=== PATIENT | male | born 1990 | race Caucasian/White ===

== ENCOUNTER → 2019-11-09 12:02 | Outpatient (CLI) | payer OTHER, SELFPAY ==
--- NOTE | 2019-11-09 | DI.RAD.S_ITS ---
PROCEDURE: XR RIBS RT 2V INDICATIONS: PAIN RIGHT SHOULDER CLAVICLE AND RIB POST FALL TECHNIQUE: 2 views of the right ribs were acquired. COMPARISON: None. FINDINGS: Surgical changes and devices: None. Bones and chest wall: No displaced right rib fractures or dislocations. No suspicious bony lesions. Overlying soft tissues appear unremarkable. Lungs and pleura: The visualized lung appears clear. No pleural effusions or pneumothorax are visible. IMPRESSION: No displaced right rib fractures. Dictated by: Harry Youssef M.D. on 11/09/2019 at 11:57 Approved by: Harry Youssef M.D. on 11/09/2019 at 11:58
--- NOTE | 2019-11-09 | DI.RAD.S_ITS ---
PROCEDURE: XR SHOULDER RT MIN 2V INDICATIONS: PAIN RIGHT SHOULDER CLAVICLE AND RIB POST FALL TECHNIQUE: 3 views of the shoulder were acquired. COMPARISON: None. FINDINGS: Bones: No fractures or dislocations. No suspicious bony lesions. Visualized ribs appear intact. Soft tissues: No suspicious soft tissue calcifications. IMPRESSION: No acute fractures of the right shoulder. Dictated by: Harry Youssef M.D. on 11/09/2019 at 11:56 Approved by: Harry Youssef M.D. on 11/09/2019 at 11:56
--- NOTE | 2019-11-09 | DI.RAD.S_ITS ---
PROCEDURE: XR CLAVICLE RT INDICATIONS: PAIN RIGHT SHOULDER CLAVICLE AND RIB POST FALL TECHNIQUE: 2 views of the clavicle were acquired. COMPARISON: None. FINDINGS: Bones: No displaced fractures or dislocations of the clavicle are evident. No suspicious osseous lesions. Soft tissues: No suspicious soft tissue calcifications. IMPRESSION: No acute right clavicle fractures. Dictated by: Harry Youssef M.D. on 11/09/2019 at 11:54 Approved by: Harry Youssef M.D. on 11/09/2019 at 11:56
== END ==
PROVIDERS: Referring Provider Family Medicine; Visit Provider Family Medicine
DX: M25.511 Pain in right shoulder (principal); M89.8X1 Other specified disorders of bone, shoulder; R07.81 Pleurodynia
CPT/HCPCS: 71100; 73000; 73030

== ENCOUNTER → 2019-11-30 09:38 | Outpatient (CLI) | payer OTHER, SELFPAY ==
--- NOTE | 2019-11-30 | DI.RAD.S_ITS ---
PROCEDURE: XR RIBS RT 2V INDICATIONS: RT CHEST PAIN S/P FALL TECHNIQUE: 2 views of the right ribs were acquired. COMPARISON: [facility], CR, XR CHEST 2V, 11/30/2019, 9:38. [facility], CR, XR CLAVICLE RT, 11/09/2019, 12:13. [facility], CR, XR RIBS RT 2V, 11/09/2019, 12:13. FINDINGS: Diagnostic, with note made of motion artifact. Surgical changes and devices: None. Bones and chest wall: A marker is placed upon the area of clinical concern. Within this region, no displaced rib fracture or other significant rib abnormality can be seen. No rib fractures are seen elsewhere. No suspicious bony lesions. Overlying soft tissues appear unremarkable. Lungs and pleura: The visualized lung appears clear. No pleural effusions or pneumothorax are visible. IMPRESSION: No displaced fractures can be seen. Dictated by: Ravi Flores M.D. on 11/30/2019 at 10:01 Approved by: Ravi Flores M.D. on 11/30/2019 at 10:02
--- NOTE | 2019-11-30 | DI.RAD.S_ITS ---
PROCEDURE: XR CHEST 2V INDICATIONS: RT CHEST PAIN S/P FALL TECHNIQUE: 2 views of the chest were acquired. COMPARISON: [facility], CR, XR RIBS RT 2V, 11/09/2019, 12:13. [facility], CR, XR RIBS RT 2V, 11/30/2019, 9:38. FINDINGS: Surgical changes and devices: None. Lungs and pleura: Lungs are clear. No pleural effusions or pneumothorax. Mediastinum: Mediastinal contours are normal. Heart size is normal. Bones and chest wall: No suspicious bony abnormalities. Soft tissues appear unremarkable. IMPRESSION: No pneumothorax is seen. No displaced rib fractures are seen. Dictated by: Ravi Flores M.D. on 11/30/2019 at 10:00 Approved by: Ravi Flores M.D. on 11/30/2019 at 10:01
== END ==
PROVIDERS: Referring Provider Family Medicine; Visit Provider Family Medicine
DX: R07.89 Other chest pain (principal)
CPT/HCPCS: 71046; 71100

== ENCOUNTER 2022-02-07 07:53 | Emergency (ER) | payer OTHER, SELFPAY ==
[2022-02-07 08:06] VITALS: BP 133/84; PULSE 92; RESP 18; TEMP 36.3; O2SAT 100; BMI 23.5
--- NOTE | 2022-02-07 08:25 | ED_ITS ---
HPI - Headache General Chief Complaint: Eye Problems Stated Complaint: Migraine with eye pain/ right side face swollen Time Seen by Provider: 02/07/22 08:07 Mode of arrival: Ambulatory History of Present Illness HPI Narrative: Patient is a 31-year-old male with no past medical history presenting with a right-sided headache and pressure behind his right eye for last couple days worse today. He says that his scalp his really tender and his hair hurts. Today he woke up and has a small red bump over his right eye. He denies any actual eye pain. He is sensitive to light more so over the last couple of days. No nausea or vomiting. No numbness tingling or weakness. No fever or chills no neck pain. No visual changes. He says he has had his eye scratch before does not feel like that his eye is not crusted is. Only 1 small bump on the right side. The rest of his headache is on the right side of his head as well. He does not typically get headaches. Related Data Home Medications Medication Instructions Recorded Confirmed bupropion HBr PO 06/22/21 09/20/21 hydroxyzine HCl PO 06/22/21 09/20/21 omeprazole 40 mg capsule,delayed 40 mg PO DAILY 06/22/21 09/20/21 release Previous Rx's Medication Instructions Recorded hydrocodone 5 mg-acetaminophen 325 1 tab PO Q6H PRN pain #10 tabs 02/07/22 mg tablet prednisone 20 mg tablet 40 mg PO DAILY #10 tabs 02/07/22 valacyclovir 1 gram tablet 1,000 mg PO TID #21 tabs 02/07/22 Allergies Allergy/AdvReac Type Severity Reaction Status Date / Time No Known Drug Allergies Allergy Verified 09/20/21 08:15 Review of Systems Review of Systems Narrative: GENERAL: Denies chills, fatigue, malaise, fever, sweats, travel HEENT: See HPI RESPIRATORY: Denies dyspnea, cough, wheezing, hemoptysis, sputum. CARDIOVASCULAR: Denies chest pain, palpitations, orthopnea, edema GASTROINTESTINAL: Denies nausea, vomiting, abdominal pain, diarrhea, constipation, melena. : Denies dysuria, frequency, incontinence, hematuria, urinary retention, flank pain. MUSCULOSKELETAL: Denies weakness, joint pain, or bony pain SKIN: No rash, no erythema, no pruritus NEUROLOGIC: See HPI PSYCHIATRIC: No concerning psychosocial issues. 12 point review of systems is negative except for those stated above and HPI Patient History Medical History Anxiety Depression Frequency of micturition History of insomnia Nocturia Overactive bladder Reflux gastritis Snoring Social History Smoking Status: Current every day smoker Smoking Status: Current every day smoker alcohol intake frequency: a few times a week Substance Use Type: does not use Exam Initial Vital Signs Initial Vital Signs: Vital Signs Temperature 97.4 F L 02/07/22 08:06 Pulse Rate 92 H 02/07/22 08:06 Respiratory Rate 18 02/07/22 08:06 Blood Pressure 133/84 02/07/22 08:06 Pulse Oximetry 100 02/07/22 08:06 Oxygen Delivery Method 02/07/22 08:06 GENERAL: Well-appearing, well-nourished and in no acute distress. HEENT: Head atraumatic,EOMI, pupils reactive, face symmetric, moist mucous membranes Eyes no erythema no periorbital swelling Right eye was treated with proparacaine, stained with fluorescein. No dye uptake. No foreign body. Neck is supple without meningeal signs CARDIOVASCULAR: Regular rate and rhythm without murmurs, rubs or gallops. RESPIRATORY: Breath sounds equal bilaterally, no wheezes rales or rhonchi. ABDOMEN: Soft, nontender. Normoactive bowel sounds all 4 quadrants. No guarding or rebound. EXTREMITIES: Normal range of motion, no clubbing or edema. Neurovascularly intact NEUROLOGICAL: Alert and oriented x4.Normal gait and speech. Cranial nerves II through XII grossly intact. Steam Blocker strength equal bilaterally, good lower extremity strength SKIN: Warm, dry, no laceration, no petechiae, no rashes or lesions. He does gonzales ve some a few erythematous spots superior the right periorbital area no actual vesicles, they do not cross midline Course Orders Ordered: Discontinued Medications Fluorescein Sodium (Fluorescein 1 Mg Strip) 1 mg EYE-BOTH NOW ONE Stop: 02/07/22 09:38 Last Admin: 02/07/22 09:47 Dose: 1 mg Documented By: JUANITA Sodium Chloride (Normal Saline 0.9%) 1,000 mls @ 1,000 mls/hr IV BOLUS ONE Stop: 02/07/22 09:27 Last Infusion: 02/07/22 09:55 Dose: 0 mls/hr Documented By: Admin: 02/07/22 08:43 Dose: 1,000 mls/hr Documented By: JUANITA(2) Ketorolac Tromethamine (Ketorolac 30 Mg/Ml Vial) 30 mg IV NOW ONE Stop: 02/07/22 08:29 Last Admin: 02/07/22 08:43 Dose: 30 mg Documented By: JUANITA(2) Morphine Sulfate (Morphine 4 Mg/Ml Inj) 4 mg IV NOW ONE Stop: 02/07/22 09:38 Last Admin: 02/07/22 09:48 Dose: 4 mg Documented By: JUANITA Ondansetron HCl (Ondansetron 4 Mg/2 Ml Inj) 4 mg IV NOW ONE Stop: 02/07/22 09:38 Last Admin: 02/07/22 09:48 Dose: 4 mg Documented By: JUANITA Proparacaine HCl (Proparacaine 0.5% Ophth Radha) 1 drops EYE-RIGHT NOW ONE Stop: 02/07/22 09:38 Last Admin: 02/07/22 09:47 Dose: 1 drop Documented By: JUANITA Vital Signs Vital signs: Vital Signs - 8 hr 02/07/22 08:06 Temperature 97.4 F L Pulse Rate 92 H Respiratory Rate 18 Blood Pressure 133/84 Pulse Oximetry 100 Oxygen Delivery Method Room Air MDM - Headache Lab Data Result diagrams: 02/07/22 08:06 02/07/22 08:06 Labs: Lab Results 02/07/22 02/07/22 Range/Units 08:06 08:06 WBC 6.6 (4.5-11.0) X10^3/uL RBC 5.17 (4.5-5.9) X10^6/uL Hgb 15.8 (13.5-17.5) g/dL Hct 44.7 (41-53) % MCV 86.4 (80-100) fL MCH 30.5 (26-34) PG MCHC 35.3 (30-36) % RDW 12.9 (11.6-14.8) % Plt Count 195 (150-400) X10^3/uL Neut % (Auto) 70.8 (50-75) % Lymph % (Auto) 17.4 L (25-40) % [place] % (Auto) 8.7 (3-14) % Eos % (Auto) 2.3 (2-4) % Baso % (Auto) 0.8 (0-2) % Neut # (Auto) 4700 (1039-9703) /uL Lymph # (Auto) 1200 (6678-3645) /uL [place] # (Auto) 600 (0-900) /uL Eos # (Auto) 200 (0-450) /uL Baso # (Auto) 100 (0-100) /uL Sodium 138 (137-145) mmol/L Potassium 4.1 (3.4-5.1) mmol/L Chloride 103 (98-107) mmol/L Carbon Dioxide 29 (22-32) mmol/L BUN 15 (9-20) mg/dL Creatinine 0.85 (0.66-1.25) mg/dL Estimated GFR > 60 (>60) mL/min BUN/Creatinine Ratio 17.6 (6-22) Glucose 151 H (70-100) mg/dL Calcium 9.1 (8.4-10.2) mg/dL Total Bilirubin 1.3 (0.2-1.3) mg/dL AST 51 (17-59) IU/L ALT 39 (<50) IU/L Alkaline Phosphatase 58 (38-126) U/L Total Protein 7.7 (6.3-8.2) g/dL Albumin 4.6 (3.5-5.0) g/dL Globulin 3.1 (1.7-4.1) g/dL Albumin/Globulin Ratio 1.5 (1.0-2.8) MDM Narrative Medical decision making narrative: The patient has a rash eye pain and headache with extremely sensitive scalp. I have very high suspicion for shingles. Will go ahead and start him on antiviral medications and prednisone. No ophthalmology involvement at this time. Discharge Plan Departure Patient Disposition: Home Clinical Impression: Shingles of eyelid Instructions: Shingles Activity Restrictions/Additional Instructions: *You have been diagnosed with shingles *What to do: At this time I have a very high suspicion that you have shingles. Her rash will likely get worse before it gets better. It can be very painful is for few weeks. *Continue to take medications as directed Valacyclovir 1000 mg 3 times a day for 7 days Prednisone 40 mg once a day for 5 days [place] 1 tablet every 6 hours if needed for severe pain *Follow up with your primary care provider in 2-3 days or call [phone] *Return to ER if you should have please monitor for any eye involvement extreme pain in I and able to open worsening redness of skin worsening pain or any new, worsening or concerning symptoms CONTROLLED SUBSTANCE DISCHARGE (Narcotoic/benzodiazepine/Flexeril/Phenergan) 1. You have been prescribed narcotic medications, it does have acetaminophen/Tylenol/paracetamol in it, DO NOT TAKE MORE THAN 4,00mg in 24 hours of Tylenol. TRAMADOL DOES NOT CONTAIN TYLENOL 2. Please understand that we cannot provide further refills of narcotics, benzodiazepines or controlled substances through the ED and her pain management will need to be through your provider. 3. While on these medications you cannot drive or operate heavy machinery. 4. You cannot sign legal documents or perform any duties such as this. 5. As long as you're taking opiate pain medications he should also be taking a stool softener such as Colace, Dulcolax, MiraLAX or prune juice, to help avoid constipation. Prescriptions: New valacyclovir 1 gram tablet 1,000 mg PO TID Qty: 21 0RF prednisone 20 mg tablet 40 mg PO DAILY Qty: 10 0RF hydrocodone-acetaminophen 5-325 mg tablet 1 tab PO Q6H PRN (Reason: pain) Qty: 10 0RF No Action omeprazole 40 mg capsule,delayed release(DR/EC) 40 mg PO DAILY bupropion HBr PO hydroxyzine HCl PO Referrals: Bernarda Palmer MD [Primary Care Provider] - Visit Report Forms: Patient Portal/API
[2022-02-07 08:34] LABS: Add Manual Diff / Slide Review NO; Basophils Absolute Auto 100 /uL (0-100); Basophils Percent Auto 0.8 % (0-2); Eosinophils Absolute Auto 200 /uL (0-450); Eosinophils Percent Auto 2.3 % (2-4); Hematocrit 44.7 % (41-53); Hemoglobin 15.8 g/dL (13.5-17.5); Lymphocytes Absolute Auto 1200 /uL (1100-4500); Lymphocytes Percent Auto 17.4 % (25-40); Mean Corpuscular HGB Conc 35.3 % (30-36); Mean Corpuscular Hemoglobin 30.5 PG (26-34); Mean Corpuscular Volume 86.4 fL (80-100); Monocytes Absolute Auto 600 /uL (0-900); Monocytes Percent Auto 8.7 % (3-14); Neutrophils Absolute Auto 4700 /uL (1500-7000); Neutrophils Percent Auto 70.8 % (50-75); Platelet Count 195 X10^3/uL (150-400); Red Blood Cell Count 5.17 X10^6/uL (4.5-5.9); Red Cell Distribution Width 12.9 % (11.6-14.8); White Blood Cell Count 6.6 X10^3/uL (4.5-11.0)
[2022-02-07] MEDS: SODIUM CHLORIDE 0.9% 1,000 ML 1000 ML IV (08:43)
[2022-02-07] MEDS: KETOROLAC 30 MG/ML VIAL IV (08:43)
[2022-02-07 08:46] LABS: Alanine Aminotransferase 39 IU/L (<50); Albumin 4.6 g/dL (3.5-5.0); Albumin Globulin Ratio 1.5 (1.0-2.8); Alkaline Phosphatase 58 U/L (38-126); Aspartate Aminotransferase 51 IU/L (17-59); BUN Creatinine Ratio 17.6 (6-22); Bilirubin Total 1.3 mg/dL (0.2-1.3); Blood Urea Nitrogen 15 mg/dL (9-20); Calcium 9.1 mg/dL (8.4-10.2); Carbon Dioxide 29 mmol/L (22-32); Chloride 103 mmol/L (98-107); Estimated Glomerular Filt Rate > 60 mL/min (>60); Globulin 3.1 g/dL (1.7-4.1); Glucose 151 mg/dL (70-100); Potassium 4.1 mmol/L (3.4-5.1); Sodium 138 mmol/L (137-145); Total Protein 7.7 g/dL (6.3-8.2)
[2022-02-07 08:49] LABS: HEMOLYSIS 57 (0-50)
[2022-02-07 09:30] VITALS: BP 130/74; PULSE 85; RESP 18; O2SAT 98
[2022-02-07] MEDS: PROPARACAINE 0.5% OPHTH SOL 1 DROPS EYE-RIGHT (09:47)
[2022-02-07] MEDS: FLUORESCEIN 1 MG STRIP EYE-BOTH (09:47)
[2022-02-07] MEDS: MORPHINE 4 MG/ML INJ IV (09:48)
[2022-02-07] MEDS: ONDANSETRON 4 MG/2 ML INJ IV (09:48)
[2022-02-07 10:35] VITALS: BP 130/74; PULSE 70; RESP 18; O2SAT 97
== END 2022-02-07 10:35 | disposition home or self-care (01) ==
PROVIDERS: Emergency Provider Emergency Medicine; PCP Family Medicine
DX: B02.39 Other herpes zoster eye disease (principal)
CPT/HCPCS: 36415; 80053; 85025; 96361; 96374; 96375; 99284; J1885; J2270; J2405

== ENCOUNTER → 2022-09-12 11:14 | Outpatient (CLI) | payer OTHER, SELFPAY ==
--- NOTE | 2022-09-12 | DI.RAD.S_ITS ---
PROCEDURE: XR LUMBAR SPINE 2-3V INDICATIONS: low back pain TECHNIQUE: 3 views of the lumbar spine were acquired. COMPARISON: [facility], , -SPINE 2-3 VIEWS, 02/09/2016, 11:56. FINDINGS: Bones: 5 [id number] vertebrae are present. 4 millimeters retrolisthesis L3 on L4. Minimal multilevel degenerative changes with disc height loss, endplate spurring, and possible facet arthropathy. No vertebral body compression fractures. No suspicious bony lesions. Soft tissues: Overlying bowel gas pattern is normal. No suspicious soft tissue calcifications. IMPRESSION: Minimal degenerative changes of the lumbar spine. Dictated by: Reese Kumar M.D. on 09/12/2022 at 18:13 Approved by: Reese Kumar M.D. on 09/12/2022 at 18:16
== END ==
PROVIDERS: PCP Family Medicine; Referring Provider Family Medicine; Visit Provider Family Medicine
DX: M54.50 Low back pain, unspecified (principal)
CPT/HCPCS: 72100

== ENCOUNTER → 2022-09-22 13:55 | Outpatient (CLI) | payer OTHER, SELFPAY ==
--- NOTE | 2022-09-22 13:57 | DI.MRI.S_ITS ---
PROCEDURE: MR LUMBAR SPINE WO CON INDICATIONS: Low back pain, unspecified TECHNIQUE: Noncontrast sagittal T1 spin echo and T2 fast echo, sagittal STIR, and T2 fast spin echo through the lumbar spine. In cases with scoliosis, additional coronal T2 fast spin echo may be performed. COMPARISON: [facility], CR, XR LUMBAR SPINE 2-3V, 09/12/2022, 11:21. FINDINGS: Image quality: Excellent. Alignment and Curvature: There is normal bony alignment. Bone Marrow: Marrow is of normal overall signal. No acute vertebral body compression fractures. Spinal Cord: Conus medullaris terminates at the L1-L2 level. Visualized cord demonstrates normal signal and size. Paraspinous Soft Tissues: No paravertebral masses. T12-L1: No canal stenosis or foraminal stenosis. L1-L2: Minimal disc bulge. No canal stenosis or foraminal stenosis. L2-L3: Disc bulge. Epidural lipomatosis. Mild canal stenosis. No foraminal stenosis. L3-L4: Posterior annulus tear plus relatively broad-based mild central posterior disc extrusion with inferiorly extruded disc material. Disc material abuts the bilateral L4 nerve roots in the lateral recesses. There is some epidural lipomatosis. There is moderate canal stenosis. There is mild facet hypertrophy. There is no significant foraminal stenosis. L4-L5: Posterior annulus tear plus mild central posterior disc extrusion. Disc material abuts the left L5 nerve root in the left lateral recess. There is mild canal stenosis. There is no significant foraminal stenosis. L5-S1: Posterior annulus tear. Broad-based disc bulge plus superimposed right posterior lateral disc protrusion. The right S1 nerve root is mildly posteriorly deviated in the right lateral recess. There is no central canal stenosis. There is bilateral facet hypertrophy. There is moderate right foraminal narrowing with flattening deformity on the exiting right L5 nerve root secondary to disc material. There is mild left foraminal narrowing. IMPRESSION: 1. There are disc extrusions or protrusions at L3-L4, L4-L5, and L5-S1. 2. Canal stenosis is mild at L2-L3, moderate at L3-L4, and mild at L4-L5. 3. Foraminal disc protrusion at L5-S1 results in moderate right foraminal narrowing. Dictated by: Nicola Torres M.D. on 09/24/2022 at 9:11 Approved by: Nicola Torres M.D. on 09/24/2022 at 9:17
== END ==
PROVIDERS: PCP Family Medicine; Referring Provider Family Medicine; Visit Provider Family Medicine
DX: M51.26 Other intervertebral disc displacement, lumbar region (principal); M51.27 Other intervertebral disc displacement, lumbosacral region; M48.061 Spinal stenosis, lumbar region without neurogenic claudication; M48.07 Spinal stenosis, lumbosacral region
CPT/HCPCS: 72148

== ENCOUNTER → 2025-05-27 14:35 | Outpatient (CLI) | payer OTHER, SELFPAY | LOC: PHYS 14:36 | PROVIDERS: Family Provider Family Medicine; PCP Family Medicine; Referring Provider Family Medicine; Visit Provider Family Medicine | DX: R20.2 Paresthesia of skin (principal); M79.601 Pain in right arm; M79.602 Pain in left arm | CPT/HCPCS: 95886; 95910 ==